=== PATIENT | female | born 1950 | race Two or more races ===

== ENCOUNTER 2020-05-12 17:16 | Emergency (ER) | payer OTHER ==
[2020-05-12 17:55] VITALS: TEMP 97.9; BMI 29.1
[2020-05-12] MEDS ORDERED: LACTATED RINGERS SOLUTION 1000 ML INFUS.BAG IV ONE (18:21)
[2020-05-12] MEDS ORDERED: ACETAMINOPHEN 1000 MG/100 ML VIAL (NON FORMULARY) IVPB ONE (18:21)
[2020-05-12] MEDS ORDERED: ACETAMINOPHEN INJECTION 100 ML IVPB ONE (18:56)
[2020-05-12 18:59] LABS: BASO % 1.5 % (0-2.0); EOS % 0.9 % (0-4.5); HEMATOCRIT 43.4 % (32.4-45.2); HEMOGLOBIN 14.5 GM/dL (10.7-15.3); LYMPH % 26.9 % (8-40); MCH 29.7 pg (25.7-33.7); MCHC 33.5 g/dl (32.0-36.0); MEAN CELL VOLUME 88.9 fl (80-96); MEAN PLT VOLUME 9.5 fl (7.5-11.1); MONO % 8.3 % (3.8-10.2); NEUT % 62.4 % (42.8-82.8); PLATELET COUNT 248 K/MM3 (134-434); RBC 4.88 M/mm3 (3.60-5.2); RDW 14.3 % (11.6-15.6); WHITE BLOOD COUNT 11.1 K/mm3 (4.0-10.0)
[2020-05-12 19:17] LABS: CHLORIDE 98 mmol/L (98-107); SODIUM 129 mmol/L (136-145)
[2020-05-12 19:20] LABS: ALBUMIN 3.9 g/dl (3.4-5.0); BLOOD UREA NITROGEN 26.8 mg/dL (7-18); CALCIUM 9.3 mg/dL (8.5-10.1); CO2 24 mmol/L (21-32); GLUCOSE,RANDOM 111 mg/dL (74-106); LIPASE 127 U/L (73-393)
[2020-05-12 19:24] LABS: CREATININE 1.2 mg/dL (0.55-1.3); SGOT/AST 81 U/L (15-37)
[2020-05-12 19:25] LABS: BILIRUBIN,TOTAL 0.5 mg/dL (0.2-1); TOT PROT 8.1 g/dl (6.4-8.2)
[2020-05-12 19:26] LABS: ALK PHOS 70 U/L (45-117)
[2020-05-12 19:35] LABS: EPI CELLS 10 /uL (0-25.1); HYALINE CASTS 4 /uL (0-3.1); PH,URINE 5.5 (5.0-8.0); URINE APPEARANCE CLEAR; URINE BACTERIA 10 /uL (0-1359); URINE BILIRUBIN NEGATIVE (NEGATIVE); URINE COLOR YELLOW; URINE GLUCOSE (UA) NEGATIVE (NEGATIVE); URINE KETONE TRACE (NEGATIVE); URINE LEUK ESTERASE TRACE (NEGATIVE); URINE NITRITE NEGATIVE (NEGATIVE); URINE PROTEIN NEGATIVE (NEGATIVE); URINE RBC 11 /uL (0-23.9); URINE UROBILINOGEN 0.2 mg/dL (0.2-1.0); URINE WBC 18 /uL (0-25.8)
[2020-05-12 19:52] LABS: ANION GAP 7 MMOL/L (8-16); SGPT/ALT 38 U/L (13-61)
[2020-05-12 19:59] LABS: POTASSIUM 8.7 mmol/L (3.5-5.1)
[2020-05-12 21:17] LABS: CALCIUM 8.7 mg/dL (8.5-10.1); POTASSIUM 4.1 mmol/L (3.5-5.1)
[2020-05-12 21:19] LABS: BLOOD UREA NITROGEN 26.1 mg/dL (7-18)
[2020-05-12 21:21] LABS: CREATININE 0.9 mg/dL (0.55-1.3)
[2020-05-12 23:08] VITALS: BP 156/87; PULSE 68
== END 2020-05-12 23:08 | disposition home or self-care (01) ==
LOC: JER 17:16
PROC: 3E033NZ Introduction of Analgesics, Hypnotics, Sedatives into Peripheral Vein, Percutaneous Approach (ICD-10-PCS; principal; 2020-05-12)
DX: R10.32 Left lower quadrant pain (principal)
CPT/HCPCS: 36415; 71045-TC-FY; 74177-TC; 80048; 80053; 81003; 82550; 82553; 83605; 83690; 84484; 85025; 87086; 93005; 93010; 99284-25; J0131; Q9967

== ENCOUNTER 2020-05-26 12:08 | Emergency (ER) | payer OTHER ==
[2020-05-26 12:34] VITALS: BP 125/68; PULSE 80; TEMP 98.2; BMI 28.2
[2020-05-26] MEDS ORDERED: ONDANSETRON 4 MG/2 ML VIAL IVPUSH ONE (13:32)
[2020-05-26] MEDS ORDERED: morphine CARPU-JECT 4 MG/1 ML DISP.SYRIN IVPUSH ONE (13:32)
[2020-05-26] MEDS ORDERED: SODIUM CHLORIDE 1,000 ML IV STA (13:32)
[2020-05-26 15:27] LABS: BASO % 0.5 % (0-2.0); EOS % 0.7 % (0-4.5); HEMATOCRIT 42.2 % (32.4-45.2); HEMOGLOBIN 14.4 GM/dL (10.7-15.3); LYMPH % 25.8 % (8-40); MCH 29.8 pg (25.7-33.7); MCHC 34.1 g/dl (32.0-36.0); MEAN CELL VOLUME 87.3 fl (80-96); MEAN PLT VOLUME 9.4 fl (7.5-11.1); MONO % 9.9 % (3.8-10.2); NEUT % 63.1 % (42.8-82.8); PLATELET COUNT 232 K/MM3 (134-434); RBC 4.83 M/mm3 (3.60-5.2); RDW 13.6 % (11.6-15.6)
[2020-05-26 15:37] LABS: CHLORIDE 99 mmol/L (98-107); POTASSIUM 3.8 mmol/L (3.5-5.1); SODIUM 134 mmol/L (136-145)
[2020-05-26 15:41] LABS: ALBUMIN 3.9 g/dl (3.4-5.0); ANION GAP 7 MMOL/L (8-16); BLOOD UREA NITROGEN 12.3 mg/dL (7-18); CALCIUM 9.3 mg/dL (8.5-10.1); CO2 28 mmol/L (21-32); GLUCOSE,RANDOM 102 mg/dL (74-106); LIPASE 114 U/L (73-393)
[2020-05-26 15:44] LABS: CREATININE 0.9 mg/dL (0.55-1.3); SGOT/AST 51 U/L (15-37); SGPT/ALT 36 U/L (13-61)
[2020-05-26 15:46] LABS: BILIRUBIN,TOTAL 0.6 mg/dL (0.2-1)
[2020-05-26 15:47] LABS: ALK PHOS 66 U/L (45-117)
[2020-05-26] MEDS ORDERED: ONDANSETRON 4 MG/2 ML VIAL ONE (16:14)
[2020-05-26] MEDS ORDERED: morphine SULFATE 4 MG/ML VIAL ONE (16:14)
[2020-05-26] MEDS ORDERED: ASPIRIN 325 MG TABLET PO ONE (16:57)
[2020-05-26] MEDS ORDERED: diphenhydrAMINE HCL 25 MG CAPSULE (FP) PO ONE (19:22)
[2020-05-26] MEDS ORDERED: ASPIRIN 81 MG CHEWABLE TABLETS ONE (19:22)
== END 2020-05-26 19:53 | disposition home or self-care (01) ==
LOC: JER 12:08
PROC: 3E033GC Introduction of Other Therapeutic Substance into Peripheral Vein, Percutaneous Approach (ICD-10-PCS; principal; 2020-05-26)
PROC: 3E0337Z Introduction of Electrolytic and Water Balance Substance into Peripheral Vein, Percutaneous Approach (ICD-10-PCS; principal; 2020-05-26)
DX: R10.32 Left lower quadrant pain (principal)
CPT/HCPCS: 36415; 74177-TC; 80053; 82550; 82553; 83690; 84484; 85025; 93005; 93010; 99285-25; Q9967